=== PATIENT | female | born 1955 ===

== ENCOUNTER 2016-10-17 18:37 | Emergency (ER) | payer OTHER ==
--- NOTE | 2016-10-17 19:20 | ED NURSING NOTES ---
Clinical Report - Nurses [facility] [address] [place] [address] 10/17/2016 18:40 Patient: CHARISMA YOUNGBLOOD TRIAGE Triage time 18:46 Oct 17 2016. Acuity: LEVEL 4. Chief Complaint: FALL (was sitting in lawn chair and someone tipped her over to fall on her left wrist.). 18:50 10/17/16. Alert. SEPSIS SCREEN: Sepsis Screen. Negative (no infection suspected/documented). XIOMARA COMA SCORE: [place] Coma Scale: 15- eyes open spontaneously (4); best verbal response- oriented x 4 (5); best motor response- obeys commands (6). --18:50 Jaja Dalal 18:50 10/17/16. BP: 168/93. HR: 95. RR: 18. O2 saturation: 96%. Temp: 98.1 F. Pain level now 9/10. --18:50 Jaja Dalal. Weight: 83.9 kg stated. Height/Length: 57 inches Per Patient. BMI: 40.1. --18:49 Jaja Dalal. Medications Losartan Potassium Oral 100 mg, daily. --18:47 Jaja Dalal Pravastatin Sodium Oral. --18:47 Jaja Dalal Multi Vitamin Daily Oral. --18:47 Jaja Dalal. Medication/allergy information source: the patient. --18:50 Jaja Dalal. Allergies None. --18:47 Jaja Dalal. History Arrived by private vehicle. Historian: patient. Accompanied by family. Primary physician (Regis Fagan). Location of injuries: left wrist. She has had extremity pain. No loss of consciousness. No alteration in mental status, dizziness, neck pain, back pain or trouble walking. PAST MEDICAL HX: Tetanus status: up-to-date. Immunizations: up-to-date. Has had a hysterectomy. SOCIAL HX: Never smoker. No alcohol use or drug use. FALL RISK ASSESSMENT: Fall risk assessment completed. No fall risk identified. NUTRITIONAL RISK ASSESSMENT: The nutritional risk assessment revealed no deficiencies. FUNCTIONAL ASSESSMENT: Functional assessment: no impairments noted. LEARNING NEEDS ASSESSMENT: The learning needs assessment revealed no barriers. SKIN INTEGRITY ASSESSMENT: Skin integrity risk assessment completed. No skin integrity risk identified. --18:50 Jaja Dalal. PROBLEMS: Hypertension. Hypercholesterolemia. --18:48 Jaja Dalal. ADDITIONAL SURGERIES: Gallbladder Surgery. --18:48 Jaja Dalal. Assessment The patient states feels the same. --18:50 Jaja Dalal. Interventions ID band on patient. --18:50 Jaja Dalal. PHYSICAL ASSESSMENT 18:52 10/17/16. Ambulatory to room. GENERAL / NEURO / PSYCH: Alert. Oriented X 4. Appears in pain. HEENT: Pupils equal, round and reactive to light. Head non-tender. RESPIRATORY: Respirations not labored. Chest nontender. CVS: Capillary refill less than 2 seconds. GI / : Abdomen soft and nontender. EXTREMITIES: Extremities exhibit normal ROM. Neuro-vascular status intact to the extremity. Left wrist: tenderness, swelling and deformity. SKIN: Skin intact. Skin is warm and dry. --18:52 Jaja Dalal. NURSING PROGRESS NOTES 18:52 10/17/16. The plan of care for this patient has been created. Cold pack applied. Extremity elevated. Neuro-vascular extremity check. Reassurance given. Two patient identifiers checked. Call light placed in reach. Side rails up x 1. Bed placed in lowest position. Brakes of bed on. Patient ready for evaluation- chart flagged and ED physician notified. --18:52 Jaja Dalal 19:20 10/17/2016 Toradol (Ketorolac Tromethamine) IM 60 mg given. Given in the left ventral gluteus. Allergies verified and confirmed 5 rights. --19:20 Jaja Dalal 19:30 10/17/16. Volar upper extremity splint applied to left wrist by tech. Distal pulses intact, sensation intact and motor within normal limits. --19:36 Jaja Dalal. DISPOSITION / DISCHARGE 19:35 10/17/16. Departure time: 19:Oct 17 2016. Condition at departure: improved. The goals identified in the patient's plan of care were met. No learning barriers present. Discharge instructions provided and reviewed with the patient and family. Reviewed warnings (Family and patient verbalized understanding of sedation warning. Family verbalized awareness of warning s/sx listed in dc paperwork.). Reviewed medication(s). Prescription(s) given to the patient (Hydrocodone). Treatments reviewed. Reviewed referral to a primary care physician for followup. Patient and family verbalized understanding. Written instructions provided in Ukrainian. The patient was discharged by the physician. She was discharged home and accompanied by family. She left the Emergency Department ambulatory and via private vehicle. Family member driving. FALL RISK ASSESSMENT: Fall risk assessment completed. No fall risk identified. --19:38 Jaja Dalal 19:36 10/17/16. BP: deferred. HR: deferred. RR: deferred. O2 saturation: deferred. Temp: deferred. Pain level now deferred. 18:46 10/17/16. BP: 168/93. HR: 95. RR: 18. O2 saturation: 96%. Temp: 98.1 F. Pain level now 9/10. --19:38 Jaja Dalal. Locked/Released at 10/17/2016 19:39 by Jaja Dalal,
--- NOTE | 2016-10-17 19:20 | ED CLINICAL REPORT ---
Clinical Report - Physicians/Mid Levels [facility] [address] [place] [address] 10/17/2016 18:40 Patient: CHARISMA YOUNGBLOOD Time Seen: 18:46; initial patient contact. Arrived- By private vehicle. Historian- patient. HISTORY OF PRESENT ILLNESS Chief Complaint: Injury to left wrist. The injury happened just prior to arrival. Occurred at home. Fell off a chair and landed on the ground. Patient is experiencing moderate pain. Patient denies injury to the head or neck. REVIEW OF SYSTEMS The patient has had swelling. No tingling, numbness, weakness or skin laceration. All systems otherwise negative, except as recorded above. PAST HISTORY Hypertension. Hypercholesterolemia. SURGERIES: Gallbladder Surgery. The patient's dominant hand is the right. SOCIAL HISTORY Never smoker. No alcohol use or drug use. ADDITIONAL NOTES The nursing notes have been reviewed. PHYSICAL EXAM Vital Signs: 10/17/2016 18:50 BP: 168/93. HR: 95. RR: 18. O2 saturation: 96%. Temp: 98.1 F. Have been reviewed. Hypertensive. Heart rate normal. Respiratory rate normal. Temperature normal. Oxygen saturation normal. Appearance: Alert. Oriented X3. Appears to be in pain. Skin: Skin intact. Skin warm and dry. Normal skin color. Extremities: Left wrist: moderate tenderness and swelling and mild deformity consistent with a distal forearm fracture. Limited ROM secondary to pain (diminished flexion and extension, ulnar deviation and radial deviation). Upper extremity otherwise negative. Extremities otherwise negative. Neuro, Vascular and Tendons: Vascular status intact. Sensation intact. Motor intact. Tendon function intact. Neuro: Oriented X 3. No motor deficit. No sensory deficit. LABS, X-RAYS, AND EKG Lt Wrist X-ray: Minimally displaced fracture of the distal radius (buckle). Views: AP, lateral and oblique. Technique: good. The X-rays were independently viewed by me and interpreted contemporaneously by me. Prior films were not available for comparison. PROGRESS AND PROCEDURES Disposition: Discharged home in good and improved condition. Condition: good. CLINICAL IMPRESSION Closed displaced transverse fracture of the distal left radius. No angulated fracture of the radius. INSTRUCTIONS Apply ice for 20 minutes four times a day until better. Don't apply ice directly to skin. Wear fiberglass splint until released. Your Current Medications: CONTINUE TAKING THE FOLLOWING MEDICATIONS: Losartan Potassium Oral : 100 mg daily. Multi Vitamin Daily Oral. Pravastatin Sodium Oral. Prescription Medications: Hydrocodone/APAP 5mg / 325mg: take 1 orally every 6 hours as needed for pain. Dispense fifteen (15). No refill. Follow-up: Blood pressure screening was not performed during this visit because the patient has an active diagnosis of hypertension. [facility], , [address] [facility] [place] [address] Follow up in about two days. Call for an appointment. (Electronically signed by Duglas Ritter Dr. 10/17/2016 22:42)
--- NOTE | 2016-10-17 19:20 | ED ORDER SUMMARY ---
..... Patient: CHARISMA YOUNGBLOOD OrderSheet [facility] VisitID: [id number] [place] [address] 61y, F Registration Date/Time: 10/17/2016 ORDER SHEET Weight: 83.9 kg (stated) Allergies: None GENERAL ORDERS: Wrist 3 or 4V Left Urgent (18:52 10/17/2016 ASchmuck per protocol) (Ack 18:59 RKaruga) (19:15 ASchmuck) Splint (UE) (Left) (Volar) (19:20 10/17/2016 Trip Jennings) (19:31 ASchmuck) MEDICATION ORDERS: Toradol IM 60 mg (NOW) (19:01 10/17/2016 Trip Jennings) (Ack 19:15 ASchmuck) (19:20 ASchmuck) IV FLUIDS: ORDER SHEET NOTES: [Electronically signed by Jaja Dalal (19:39 10/17/2016)] [Electronically signed by Duglas Ritter Dr. (22:42 10/17/2016)] [Electronically locked/signed by Jaja Dalal (19:39 10/17/2016)]
--- NOTE | 2016-10-17 19:20 | ED ORDER SUMMARY ---
..... Patient: CHARISMA YOUNGBLOOD OrderSheet [facility] VisitID: [id number] [place] [address] 61y, F Registration Date/Time: 10/17/2016 ORDER SHEET Weight: 83.9 kg (stated) Allergies: None GENERAL ORDERS: Wrist 3 or 4V Left Urgent (18:52 10/17/2016 ASchmuck per protocol) (Ack 18:59 RKaruga) (19:15 ASchmuck) Splint (UE) (Left) (Volar) (19:20 10/17/2016 Trip Jennings) (19:31 ASchmuck) MEDICATION ORDERS: Toradol IM 60 mg (NOW) (19:01 10/17/2016 Trip Jennings) (Ack 19:15 ASchmuck) (19:20 ASchmuck) IV FLUIDS: ORDER SHEET NOTES: [Electronically signed by Jaja Dalal (19:39 10/17/2016)] [Electronically signed by Duglas Ritter Dr. (22:42 10/17/2016)] [Electronically locked/signed by Jaja Dalal (19:39 10/17/2016)]
--- NOTE | 2016-10-17 19:20 | ED CLINICAL REPORT ---
Clinical Report - Physicians/Mid Levels [facility] [address] [place] [address] 10/17/2016 18:40 Patient: CHARISMA YOUNGBLOOD Time Seen: 18:46; initial patient contact. Arrived- By private vehicle. Historian- patient. HISTORY OF PRESENT ILLNESS Chief Complaint: Injury to left wrist. The injury happened just prior to arrival. Occurred at home. Fell off a chair and landed on the ground. Patient is experiencing moderate pain. Patient denies injury to the head or neck. REVIEW OF SYSTEMS The patient has had swelling. No tingling, numbness, weakness or skin laceration. All systems otherwise negative, except as recorded above. PAST HISTORY Hypertension. Hypercholesterolemia. SURGERIES: Gallbladder Surgery. The patient's dominant hand is the right. SOCIAL HISTORY Never smoker. No alcohol use or drug use. ADDITIONAL NOTES The nursing notes have been reviewed. PHYSICAL EXAM Vital Signs: 10/17/2016 18:50 BP: 168/93. HR: 95. RR: 18. O2 saturation: 96%. Temp: 98.1 F. Have been reviewed. Hypertensive. Heart rate normal. Respiratory rate normal. Temperature normal. Oxygen saturation normal. Appearance: Alert. Oriented X3. Appears to be in pain. Skin: Skin intact. Skin warm and dry. Normal skin color. Extremities: Left wrist: moderate tenderness and swelling and mild deformity consistent with a distal forearm fracture. Limited ROM secondary to pain (diminished flexion and extension, ulnar deviation and radial deviation). Upper extremity otherwise negative. Extremities otherwise negative. Neuro, Vascular and Tendons: Vascular status intact. Sensation intact. Motor intact. Tendon function intact. Neuro: Oriented X 3. No motor deficit. No sensory deficit. LABS, X-RAYS, AND EKG Lt Wrist X-ray: Minimally displaced fracture of the distal radius (buckle). Views: AP, lateral and oblique. Technique: good. The X-rays were independently viewed by me and interpreted contemporaneously by me. Prior films were not available for comparison. PROGRESS AND PROCEDURES Disposition: Discharged home in good and improved condition. Condition: good. CLINICAL IMPRESSION Closed displaced transverse fracture of the distal left radius. No angulated fracture of the radius. INSTRUCTIONS Apply ice for 20 minutes four times a day until better. Don't apply ice directly to skin. Wear fiberglass splint until released. Your Current Medications: CONTINUE TAKING THE FOLLOWING MEDICATIONS: Losartan Potassium Oral : 100 mg daily. Multi Vitamin Daily Oral. Pravastatin Sodium Oral. Prescription Medications: Hydrocodone/APAP 5mg / 325mg: take 1 orally every 6 hours as needed for pain. Dispense fifteen (15). No refill. Follow-up: Blood pressure screening was not performed during this visit because the patient has an active diagnosis of hypertension. [facility], , [address] [facility] [address] Follow up in about two days. Call for an appointment. (Electronically signed by Duglas Ritter Dr. 10/17/2016 22:42)
--- NOTE | 2016-10-17 19:41 | DIAGNOSTIC IMAGING REPORT ---
PROCEDURE: XR WRIST MIN 3 VIEWS - LEFT INDICATION: TRAUMA/INJURY TECHNIQUE: Four views. COMPARISON: None. FINDINGS: Minimally impacted and minimally displaced transverse fracture of the distal radius. No additional osseous abnormalities. There is soft tissue swelling. IMPRESSION: 1. No impacted distal left radius fracture.
--- NOTE | 2016-10-17 22:42 | ED MAR SUMMARY ---
..... Medication Administration Record [facility] [address] [place] [address] Patient: CHARISMA YOUNGBLOOD Visit ID: [id number] 61y, F Weight: 83.9 kg Height/Length: 57 in BMI: 40.1 ALLERGIES: None Given 19:20 10/17/2016 Jaja Dalal, Medication Administered: TORADOL [IM] (KETOROLAC TROMETHAMINE), Dose: 60 mg IM. Medication Ordered: Toradol IM 60 mg (NOW).
--- NOTE | 2016-10-17 22:42 | ED DISCHARGE INSTRUCTIONS ---
Patient: CHARISMA YOUNGBLOOD General Instructions [facility] VisitID: [id number] [address] [place] [address] 61y, F Registration Date/Time: 10/17/2016 Closed displaced transverse fracture of the distal left radius. No angulated fracture of the radius. INSTRUCTIONS Apply ice for 20 minutes four times a day until better. Don't apply ice directly to skin. Wear fiberglass splint until released. Your Current Medications: CONTINUE TAKING THE FOLLOWING MEDICATIONS: Losartan Potassium Oral : 100 mg daily. Multi Vitamin Daily Oral. Pravastatin Sodium Oral. Prescription Medications: Hydrocodone/APAP 5mg / 325mg: take 1 orally every 6 hours as needed for pain. Dispense fifteen (15). No refill. Follow-up: Blood pressure screening was not performed during this visit because the patient has an active diagnosis of hypertension. [facility] with: [facility], , [address], [place], [address] Follow up in about two days. Call for an appointment. ADDITIONAL INFORMATION Fracture: Wrist (General) You have a fracture (break) of a bone in your wrist. This may be a small crack or chip in the bone; or a major break with the broken parts pushed out of position. Wrist fractures are treated with a splint or cast. They take about 4-6 weeks to heal. Severe injuries may require surgery. Home Care: Keep your arm elevated to reduce pain and swelling. When sitting or lying down elevate your arm above the level of your heart. You can do this by placing your arm on a pillow that rests on your chest or on a pillow at your side. This is most important during the first 48 hours after injury. Apply an ice pack (ice cubes in a plastic bag, wrapped in a towel) over the injured area for 20 minutes every 1-2 hours the first day. You can place the ice pack inside the sling and directly over the splint/cast. Continue with ice packs 3-4 times a day for the next two days, then as needed for the relief of pain and swelling. Keep the cast/splint completely dry at all times. Bathe with your cast/splint out of the water, protected with a large plastic bag, rubber-banded at the top end. If a fiberglass splint/cast gets wet, you can dry it with a hair-dryer. You may use acetaminophen (Tylenol) or ibuprofen (Motrin, Advil) to control pain, unless another pain medicine was prescribed. [NOTE: If you have chronic liver or kidney disease or ever had a stomach ulcer or GI bleeding, talk with your doctor before using these medicines.] Follow Up with your doctor in one week, or as advised by our staff, to be sure the bone is healing properly. If a splint was applied, it will be changed to a cast during your follow-up visit. [NOTE: Any X-rays taken will be reviewed by a radiologist. You will be notified if there are any new findings that may affect your care.] Get Prompt Medical Attention if any of the following occur: The plaster cast or splint becomes wet or soft The fiberglass cast or splint remains wet for more than 24 hours Increased tightness or pain under the cast or splint Fingers become swollen, cold, blue, numb or tingly Splint Care, Fiberglass The following will help you care for your splint: It will take up totwo hours for your fiber glass splint to fully harden; therefore, do notapply any pressure on it during that time or else it may break. To prevent swelling under the splint, for thefirst 48 hours: If the splint is on yourarm, keep it in a sling or raised to shoulder level when sitting or standing; rest it on your chest or on a pillow at your side when lying down. If the splint is on yourfoot, keep it propped up above the level of your waist when sitting or lying. Avoid crutch walking as much as possible during this time. Keep the splint/cast dry at all times. Bathe with your splint/cast well out of the water, protected with a large plastic bag, rubber-banded at the top end. If a fiberglass cast or splint gets wet, you can dry it with a hair-dryer. Follow-up care Follow up with your doctor or this facility as advised. When to seek medical care Get prompt medical attention if any of the following occur: Bad odor from the splint or wound-fluid stains the splint The splint cracks or remains wet over 24 hours Increasing tightness or pressure under the splint Fingers or toes become swollen, cold, blue, numb or tingly Increased pain under the splint Hydrocodone Bitartrate, Acetaminophen Oral tablet What is this medicine? ACETAMINOPHEN; HYDROCODONE (a set a JEAN CARLOS monica fen; maddy droe KOE done) is a pain reliever. It is used to treat mild to moderate pain. How should I use this medicine? Take this medicine by mouth. Swallow it with a full glass of water. Follow the directions on the prescription label. If the medicine upsets your stomach, take the medicine with food or milk. Do not take more than you are told to take. Talk to your assembler bonding regarding the use of this medicine in children. This medicine is not approved for use in children. What side effects may I notice from receiving this medicine? Side effects that you should report to your doctor or health foster care social worker as soon as possible: allergic reactions like skin rash, itching or hives, swelling of the face, lips, or tongue breathing problems confusion feeling faint or lightheaded, falls stomach pain yellowing of the eyes or skin Side effects that usually do not require medical attention (report to your doctor or health foster care social worker if they continue or are bothersome): nausea, vomiting stomach upset What may interact with this medicine? alcohol antihistamines isoniazid medicines for depression, anxiety, or psychotic disturbances medicines for sleep muscle relaxants naltrexone narcotic medicines (opiates) for pain phenobarbital ritonavir tramadol What if I miss a dose? If you miss a dose, take it as soon as you can. If it is almost time for your next dose, take only that dose. Do not take double or extra doses. Where should I keep my medicine? Keep out of the reach of children. This medicine can be abused. Keep your medicine in a safe place to protect it from theft. Do not share this medicine with anyone. Selling or giving away this medicine is dangerous and against the law. Store at room temperature between 15 and 30 degrees C (59 and 86 degrees F). Protect from light. Keep container tightly closed. Throw away any unused medicine after the expiration date. Discard unused medicine and used packaging carefully. Pets and children can be harmed if they find used or lost packages. What should I tell my health care provider before I take this medicine? They need to know if you have any of these conditions: brain tumor Crohn's disease, inflammatory bowel disease, or ulcerative colitis drink more than 3 alcohol-containing drinks per day drug abuse or addiction head injury heart or circulation problems kidney disease or problems going to the bathroom liver disease lung disease, asthma, or breathing problems an unusual or allergic reaction to acetaminophen, hydrocodone, other opioid analgesics, other medicines, foods, dyes, or preservatives or trying to get breast-feeding What should I watch for while using this medicine? Tell your doctor or health foster care social worker if your pain does not go away, if it gets worse, or if you have new or a different type of pain. You may develop tolerance to the medicine. Tolerance means that you will need a higher dose of the medicine for pain relief. Tolerance is normal and is expected if you take the medicine for a long time. Do not suddenly stop taking your medicine because you may develop a severe reaction. Your body becomes used to the medicine. This does NOT mean you are addicted. Addiction is a behavior related to getting and using a drug for a non-medical reason. If you have pain, you have a medical reason to take pain medicine. Your doctor will tell you how much medicine to take. If your doctor wants you to stop the medicine, the dose will be slowly lowered over time to avoid any side effects. You may get drowsy or dizzy when you first start taking the medicine or change doses. Do not drive, use machinery, or do anything that may be dangerous until you know how the medicine affects you. Stand or sit up slowly. There are different types of narcotic medicines (opiates) for pain. If you take more than one type at the same time, you may have more side effects. Give your health care provider a list of all medicines you use. Your doctor will tell you how much medicine to take. Do not take more medicine than directed. Call emergency for help if you have problems breathing. The medicine will cause constipation. Try to have a bowel movement at least every 2 to 3 days. If you do not have a bowel movement for 3 days, call your doctor or health foster care social worker. Too much acetaminophen can be very dangerous. Do not take Tylenol (acetaminophen) or medicines that contain acetaminophen with this medicine. Many non-prescription medicines contain acetaminophen. Always read the labels carefully. You have been given the following additional information: Fracture, Wrist [General] Splint Care, Fiberglass Hydrocodone Bitartrate, Acetaminophen Oral tablet (Electronically signed by Duglas Ritter Dr. 10/17/2016 22:42)
--- NOTE | 2016-10-17 22:42 | ED DISCHARGE INSTRUCTIONS ---
Patient: CHARISMA YOUNGBLOOD General Instructions [facility] VisitID: [id number] [address] [place] [place] [address] 61y, F Registration Date/Time: 10/17/2016 Closed displaced transverse fracture of the distal left radius. No angulated fracture of the radius. INSTRUCTIONS Apply ice for 20 minutes four times a day until better. Don't apply ice directly to skin. Wear fiberglass splint until released. Your Current Medications: CONTINUE TAKING THE FOLLOWING MEDICATIONS: Losartan Potassium Oral : 100 mg daily. Multi Vitamin Daily Oral. Pravastatin Sodium Oral. Prescription Medications: Hydrocodone/APAP 5mg / 325mg: take 1 orally every 6 hours as needed for pain. Dispense fifteen (15). No refill. Follow-up: Blood pressure screening was not performed during this visit because the patient has an active diagnosis of hypertension. Follow-up with: [facility], , [address], [place], [id number] Follow up in about two days. Call for an appointment. ADDITIONAL INFORMATION Fracture: Wrist (General) You have a fracture (break) of a bone in your wrist. This may be a small crack or chip in the bone; or a major break with the broken parts pushed out of position. Wrist fractures are treated with a splint or cast. They take about 4-6 weeks to heal. Severe injuries may require surgery. Home Care: Keep your arm elevated to reduce pain and swelling. When sitting or lying down elevate your arm above the level of your heart. You can do this by placing your arm on a pillow that rests on your chest or on a pillow at your side. This is most important during the first 48 hours after injury. Apply an ice pack (ice cubes in a plastic bag, wrapped in a towel) over the injured area for 20 minutes every 1-2 hours the first day. You can place the ice pack inside the sling and directly over the splint/cast. Continue with ice packs 3-4 times a day for the next two days, then as needed for the relief of pain and swelling. Keep the cast/splint completely dry at all times. Bathe with your cast/splint out of the water, protected with a large plastic bag, rubber-banded at the top end. If a fiberglass splint/cast gets wet, you can dry it with a hair-dryer. You may use acetaminophen (Tylenol) or ibuprofen (Motrin, Advil) to control pain, unless another pain medicine was prescribed. [NOTE: If you have chronic liver or kidney disease or ever had a stomach ulcer or GI bleeding, talk with your doctor before using these medicines.] Follow Up with your doctor in one week, or as advised by our staff, to be sure the bone is healing properly. If a splint was applied, it will be changed to a cast during your follow-up visit. [NOTE: Any X-rays taken will be reviewed by a radiologist. You will be notified if there are any new findings that may affect your care.] Get Prompt Medical Attention if any of the following occur: The plaster cast or splint becomes wet or soft The fiberglass cast or splint remains wet for more than 24 hours Increased tightness or pain under the cast or splint Fingers become swollen, cold, blue, numb or tingly Splint Care, Fiberglass The following will help you care for your splint: It will take up totwo hours for your fiber glass splint to fully harden; therefore, do notapply any pressure on it during that time or else it may break. To prevent swelling under the splint, for thefirst 48 hours: If the splint is on yourarm, keep it in a sling or raised to shoulder level when sitting or standing; rest it on your chest or on a pillow at your side when lying down. If the splint is on yourfoot, keep it propped up above the level of your waist when sitting or lying. Avoid crutch walking as much as possible during this time. Keep the splint/cast dry at all times. Bathe with your splint/cast well out of the water, protected with a large plastic bag, rubber-banded at the top end. If a fiberglass cast or splint gets wet, you can dry it with a hair-dryer. Follow-up care Follow up with your doctor or this facility as advised. When to seek medical care Get prompt medical attention if any of the following occur: Bad odor from the splint or wound-fluid stains the splint The splint cracks or remains wet over 24 hours Increasing tightness or pressure under the splint Fingers or toes become swollen, cold, blue, numb or tingly Increased pain under the splint Hydrocodone Bitartrate, Acetaminophen Oral tablet What is this medicine? ACETAMINOPHEN; HYDROCODONE (a set a JEAN CARLOS monica fen; maddy droe KOE done) is a pain reliever. It is used to treat mild to moderate pain. How should I use this medicine? Take this medicine by mouth. Swallow it with a full glass of water. Follow the directions on the prescription label. If the medicine upsets your stomach, take the medicine with food or milk. Do not take more than you are told to take. Talk to your ceramic coater regarding the use of this medicine in children. This medicine is not approved for use in children. What side effects may I notice from receiving this medicine? Side effects that you should report to your doctor or health senior care manager as soon as possible: allergic reactions like skin rash, itching or hives, swelling of the face, lips, or tongue breathing problems confusion feeling faint or lightheaded, falls stomach pain yellowing of the eyes or skin Side effects that usually do not require medical attention (report to your doctor or health senior care manager if they continue or are bothersome): nausea, vomiting stomach upset What may interact with this medicine? alcohol antihistamines isoniazid medicines for depression, anxiety, or psychotic disturbances medicines for sleep muscle relaxants naltrexone narcotic medicines (opiates) for pain phenobarbital ritonavir tramadol What if I miss a dose? If you miss a dose, take it as soon as you can. If it is almost time for your next dose, take only that dose. Do not take double or extra doses. Where should I keep my medicine? Keep out of the reach of children. This medicine can be abused. Keep your medicine in a safe place to protect it from theft. Do not share this medicine with anyone. Selling or giving away this medicine is dangerous and against the law. Store at room temperature between 15 and 30 degrees C (59 and 86 degrees F). Protect from light. Keep container tightly closed. Throw away any unused medicine after the expiration date. Discard unused medicine and used packaging carefully. Pets and children can be harmed if they find used or lost packages. What should I tell my health care provider before I take this medicine? They need to know if you have any of these conditions: brain tumor Crohn's disease, inflammatory bowel disease, or ulcerative colitis drink more than 3 alcohol-containing drinks per day drug abuse or addiction head injury heart or circulation problems kidney disease or problems going to the bathroom liver disease lung disease, asthma, or breathing problems an unusual or allergic reaction to acetaminophen, hydrocodone, other opioid analgesics, other medicines, foods, dyes, or preservatives or trying to get breast-feeding What should I watch for while using this medicine? Tell your doctor or health senior care manager if your pain does not go away, if it gets worse, or if you have new or a different type of pain. You may develop tolerance to the medicine. Tolerance means that you will need a higher dose of the medicine for pain relief. Tolerance is normal and is expected if you take the medicine for a long time. Do not suddenly stop taking your medicine because you may develop a severe reaction. Your body becomes used to the medicine. This does NOT mean you are addicted. Addiction is a behavior related to getting and using a drug for a non-medical reason. If you have pain, you have a medical reason to take pain medicine. Your doctor will tell you how much medicine to take. If your doctor wants you to stop the medicine, the dose will be slowly lowered over time to avoid any side effects. You may get drowsy or dizzy when you first start taking the medicine or change doses. Do not drive, use machinery, or do anything that may be dangerous until you know how the medicine affects you. Stand or sit up slowly. There are different types of narcotic medicines (opiates) for pain. If you take more than one type at the same time, you may have more side effects. Give your health care provider a list of all medicines you use. Your doctor will tell you how much medicine to take. Do not take more medicine than directed. Call emergency for help if you have problems breathing. The medicine will cause constipation. Try to have a bowel movement at least every 2 to 3 days. If you do not have a bowel movement for 3 days, call your doctor or health senior care manager. Too much acetaminophen can be very dangerous. Do not take Tylenol (acetaminophen) or medicines that contain acetaminophen with this medicine. Many non-prescription medicines contain acetaminophen. Always read the labels carefully. You have been given the following additional information: Fracture, Wrist [General] Splint Care, Fiberglass Hydrocodone Bitartrate, Acetaminophen Oral tablet (Electronically signed by Duglas Ritter Dr. 10/17/2016 22:42)
--- NOTE | 2016-10-17 22:42 | ED MED RECONCILIATION SUMMARY ---
Patient: CHARISMA YOUNGBLOOD Medication Reconciliation Report [facility] VisitID: [id number] [address] [place] [address] 61y, F Registration Date/Time: 10/17/2016 Weight: 83.9 kg Height/Length: 57 in. BMI: 40.1 ALLERGIES: None The patient's Home Medications are listed below: CONTINUE TAKING THE FOLLOWING MEDICATIONS: Losartan Potassium Oral 100 mg, daily Multi Vitamin Daily Oral Pravastatin Sodium Oral The source(s) of the original Home Medication information: patient The following Medications were given to the patient in the Emergency Department: Toradol [IM] IM 60 mg, administered: 10/17/2016 7:20:00 PM The following Medications were prescribed to the patient: Hydrocodone/APAP 5mg / 325mg: take 1 orally every 6 hours as needed for pain. Dispense fifteen (15). No refill. -- Duglas Ritter Dr.
--- NOTE | 2016-10-17 22:42 | ED MED RECONCILIATION SUMMARY ---
Patient: CHARISMA YOUNGBLOOD Medication Reconciliation Report [facility] VisitID: [id number] [address] [place] [address] 61y, F Registration Date/Time: 10/17/2016 Weight: 83.9 kg Height/Length: 57 in. BMI: 40.1 ALLERGIES: None The patient's Home Medications are listed below: CONTINUE TAKING THE FOLLOWING MEDICATIONS: Losartan Potassium Oral 100 mg, daily Multi Vitamin Daily Oral Pravastatin Sodium Oral The source(s) of the original Home Medication information: patient The following Medications were given to the patient in the Emergency Department: Toradol [IM] IM 60 mg, administered: 10/17/2016 7:20:00 PM The following Medications were prescribed to the patient: Hydrocodone/APAP 5mg / 325mg: take 1 orally every 6 hours as needed for pain. Dispense fifteen (15). No refill. -- Duglas Ritter Dr.
--- NOTE | 2016-10-17 22:42 | ED MAR SUMMARY ---
..... Medication Administration Record [facility] [address] [place] [address] Patient: CHARISMA YOUNGBLOOD Visit ID: [id number] 61y, F Weight: 83.9 kg Height/Length: 57 in BMI: 40.1 ALLERGIES: None Given 19:20 10/17/2016 Jaja Dalal, Medication Administered: TORADOL [IM] (KETOROLAC TROMETHAMINE), Dose: 60 mg IM. Medication Ordered: Toradol IM 60 mg (NOW).
== END 2016-10-17 19:35 | disposition home or self-care (01) ==
LOC: ED SRH 18:37
DX: S52.592A Other fractures of lower end of left radius, initial encounter for closed fracture (principal); W07.XXXA Fall from chair, initial encounter; Y93.9 Activity, unspecified; Y99.9 Unspecified external cause status; Y92.009 Unspecified place in unspecified non-institutional (private) residence as the place of occurrence of the external cause